=== PATIENT | male | born 1990 | race Caucasian/White ===

== ENCOUNTER → 2016-11-06 | Outpatient (CLI) | payer BC ==
--- NOTE | 2016-11-06 08:13 | DIAGNOSTIC IMAGING REPORT ---
CT OF THE SINUSES WITHOUT CONTRAST FUSION PROTOCOL CLINICAL HISTORY: Sphenoid sinusitis. Sinus pressure. COMPARISON STUDY: Head CT October 12, 2016. TECHNIQUE: Axial images of the sinuses were obtained without IV contrast. Coronal reformats were viewed. This study was performed according to Fusion protocol. FINDINGS: Visualized portions of the intracranial contents are unremarkable on this unenhanced examination. There is mild leftward deviation of the nasal septum. No bony destruction is present. No mass is present within the nasal cavity or the sinuses. Right sphenoid sinus aeration has markedly improved since exam October 12, 2016. There is mild residual mucosal thickening. The major drainage pathways are patent. IMPRESSION: 1. Significant interval improvement in right sphenoid sinus aeration since exam of October 12, 2016. Minimal residual mucosal thickening and mild secretions within the right sphenoid sinus. 2. Patent major drainage pathways. Electronically signed by: Pablo Preciado M.D. 11/06/2016 8:11 AM Dictated Date/Time: 11/06/2016 8:01 AM
== END | disposition home or self-care (01) ==
LOC: C.CTS 07:32
PROVIDERS: ATTEND Internal Medicine
DX: J32.3 Chronic sphenoidal sinusitis (principal)